=== PATIENT | male | born 1950 | race Caucasian/White ===

== ENCOUNTER 2021-12-01 15:04 | Emergency (ER) | payer MEDICARE, BC ==
[2021-12-01] MEDS ORDERED: Albuterol/Ipratropium 3.0-0.5 MG/3 ML Neb Soln NEB ONE (15:55)
[2021-12-01 16:47] LABS: CORONAVIRUS COVID-19 NAA NEGATIVE (NEGATIVE)
[2021-12-01 19:04] VITALS: BP 155/69; PULSE 77
== END 2021-12-01 19:04 | disposition home or self-care (01) ==
LOC: JP.ED 15:04
DX: J11.1 Influenza due to unidentified influenza virus with other respiratory manifestations (principal); I50.9 Heart failure, unspecified; I25.10 Atherosclerotic heart disease of native coronary artery without angina pectoris; I25.2 Old myocardial infarction; E11.9 Type 2 diabetes mellitus without complications; E66.9 Obesity, unspecified; Z68.37 Body mass index [BMI] 37.0-37.9, adult; Z88.0 Allergy status to penicillin; Z91.048 Other nonmedicinal substance allergy status; Z88.1 Allergy status to other antibiotic agents; Z88.6 Allergy status to analgesic agent; Z79.82 Long term (current) use of aspirin; Z79.4 Long term (current) use of insulin; Z79.02 Long term (current) use of antithrombotics/antiplatelets; Z79.899 Other long term (current) drug therapy; Z20.822 Contact with and (suspected) exposure to COVID-19
CPT/HCPCS: 0241U; 36415; 71046; 80053; 81001; 85025; 86140; 94640; 99284; 99285; J7620-GY

== ENCOUNTER 2021-12-05 19:32 | Emergency (ER) | payer MEDICARE, BC ==
[2021-12-05] MEDS ORDERED: Morphine 4 MG/ML Syringe IVPUSH PRN (19:36)
[2021-12-05] MEDS ORDERED: Nitroglycerin 0.4 MG Tab.SL SL PRN (19:36)
[2021-12-05] MEDS: Nitroglycerin/D5W 25 MG/250 ML BOTTLE IV SCH (20:21)
[2021-12-05] MEDS ORDERED: Furosemide 40 MG/4 ML VIAL IVPUSH ONE (21:07)
[2021-12-05] MEDS ORDERED: Albuterol/Ipratropium 3.0-0.5 MG/3 ML Neb Soln NEB PRN (23:21)
[2021-12-06] MEDS ORDERED: Isosorbide Mononitrate 30 MG Tab.ER ONE (01:46)
[2021-12-06] MEDS ORDERED: amLODIPine 5 MG Tab ONE (01:49)
[2021-12-06] MEDS ORDERED: hydrALAZINE 25 MG Tab ONE (01:50)
[2021-12-06] MEDS: hydrALAZINE 25 MG Tab PO SCH ×4 (01:58→21:45)
[2021-12-06 03:20] LABS: CORONAVIRUS COVID-19 NAA NEGATIVE (NEGATIVE)
[2021-12-06] MEDS: Mycophenolate Mofetil 250 MG Cap PO SCH ×2 (08:50→21:46)
[2021-12-06] MEDS: Magnesium Oxide 400 MG Tab PO SCH ×2 (08:52→21:46)
[2021-12-06] MEDS: Tacrolimus 0.5 MG Cap PO SCH ×2 (08:54→22:03)
[2021-12-06] MEDS: Pantoprazole 40 MG Tab.CR PO SCH ×2 (08:54→16:26)
[2021-12-06] MEDS ORDERED: Furosemide 40 MG Tab PO SCH (09:00)
[2021-12-06] MEDS ORDERED: Isosorbide Mononitrate 30 MG Tab.ER PO SCH (09:00)
[2021-12-06] MEDS ORDERED: Tamsulosin 0.4 MG Cap.ER PO SCH (09:00)
[2021-12-06] MEDS ORDERED: amLODIPine 5 MG Tab PO SCH (09:00)
[2021-12-06] MEDS ORDERED: Non-Formulary Medication 1 Each (Amlodipine [Norvasc] 10 MG Tablet) PO SCH (09:00)
[2021-12-06] MEDS ORDERED: Clopidogrel 75 MG Tab PO SCH (09:00)
[2021-12-06] MEDS ORDERED: Non-Formulary Medication 1 Each (Isosorbide Mononitrate [Isosorbide Mononitrate Er] 60 MG PO SCH (09:00)
[2021-12-06] MEDS: Budesonide 0.25 MG/2 ML Neb Susp INH SCH ×2 (09:01→23:03)
[2021-12-06] MEDS: Insulin Lispro 100 Unit/ML 3 ML KwikPen SUBCUT SCH ×3 (09:08→23:25)
[2021-12-06] MEDS ORDERED: LORazepam 2 MG/ML SDV IVPUSH ONE ×2 (11:09→17:32)
[2021-12-06] MEDS: Nitroglycerin/D5W 25 MG/250 ML BOTTLE IV SCH (15:15)
[2021-12-06] MEDS ORDERED: Oxymetazoline 0.05% Nasal Spray 30 ML Bottle NAS ONE (16:04)
[2021-12-06] MEDS ORDERED: Furosemide 40 MG/4 ML VIAL IVPUSH ONE (20:34)
[2021-12-06] MEDS ORDERED: Insulin Glargine,Human Rec. Analog 100 Units/ML 3 ML Pen SUBCUT SCH (21:00)
[2021-12-06] MEDS ORDERED: Aspirin 325 MG Tab.EC PO SCH (21:00)
[2021-12-06] MEDS ORDERED: atorvaSTATin 20 MG Tab PO SCH (21:00)
[2021-12-07 00:31] VITALS: PULSE 83
[2021-12-07 00:32] VITALS: BP 182/69
== END 2021-12-07 02:30 ==
LOC: JP.ED 19:32
DX: J10.1 Influenza due to other identified influenza virus with other respiratory manifestations (principal); I11.0 Hypertensive heart disease with heart failure; I50.9 Heart failure, unspecified; R09.02 Hypoxemia; E11.9 Type 2 diabetes mellitus without complications; I25.10 Atherosclerotic heart disease of native coronary artery without angina pectoris; E78.00 Pure hypercholesterolemia, unspecified; I25.2 Old myocardial infarction; E66.9 Obesity, unspecified; Z68.1 Body mass index [BMI] 19.9 or less, adult; Z95.1 Presence of aortocoronary bypass graft; Z79.82 Long term (current) use of aspirin; Z79.4 Long term (current) use of insulin; Z79.899 Other long term (current) drug therapy; Z88.0 Allergy status to penicillin; Z91.048 Other nonmedicinal substance allergy status; Z88.1 Allergy status to other antibiotic agents; Z88.8 Allergy status to other drugs, medicaments and biological substances
CPT/HCPCS: 36415; 36600; 71045; 80053; 81001; 82803; 82947; 83605; 83880; 84484; 85025; 94640; 96365; 96366; 96375; 96376; 99285; A9270; J1815; J1940; J2060; J2270; J3490; J7507; J7620-GY

== ENCOUNTER 2024-03-27 18:00 | Emergency (ER) | payer MEDICARE ==
[2024-03-27 19:03] LABS: BASOPHILS PERCENT AUTO 0.2 % (0.1-1.3); EOSINOPHILS ABSOLUTE AUTO 0.17 K/uL (0.00-0.40); EOSINOPHILS PERCENT AUTO 3.2 % (0.0-5.4); HEMATOCRIT 27.6 % (38.4-49.7); IMMATURE GRAN ABSOLUTE AUTO 0.05 K/uL (0.00-0.23); IMMATURE GRAN PERCENT AUTO 0.9 % (0.0-0.7); LYMPHOCYTES PERCENT AUTO 13.2 % (11.4-47.7); MEAN CORPUSCULAR HEMOGLOBIN 26.1 pg (31.6-35.5); MEAN CORPUSCULAR HGB CONC 32.6 g/dL (31.6-35.5); MONOCYTES ABSOLUTE AUTO 0.64 K/uL (0.20-0.90); MONOCYTES PERCENT AUTO 12.1 % (3.3-12.6); NEUTROPHILS ABSOLUTE AUTO 3.74 K/uL (1.0-7.6); NEUTROPHILS PERCENT AUTO 70.4 % (40.0-78.1); PLATELET COUNT,PLT 217 K/uL (130-375); RED BLOOD CELL COUNT 3.45 M/uL (4.14-5.76); WHITE BLOOD CELL COUNT,WBC 5.3 K/uL (3.2-11.0)
[2024-03-27 19:04] LABS: BASOPHILS ABSOLUTE AUTO 0.01 K/uL (0.00-0.10)
[2024-03-27] MEDS ORDERED: Sodium Chloride 0.9% 10 ML Syringe FLUSH PRN (19:11)
[2024-03-27 19:31] LABS: A/G RATIO 0.8 (1.2-2.2); ALANINE AMINOTRANSFERASE,ALT 16 U/L (12-78); ALBUMIN 2.5 g/dL (3.4-5.0); ALKALINE PHOSPHATASE 65 U/L (46-116); ANION GAP 8.5 mmol/L (5.0-14.0); ASPARTATE AMNIOTRANSFERASE,AST 19 U/L (15-37); BILIRUBIN TOTAL 0.3 mg/dL (0.2-1.0); BLOOD UREA NITROGEN,BUN 35 mg/dL (7-18); CALCIUM 9.3 mg/dL (8.5-10.1); CARBON DIOXIDE,CO2 29 mmol/L (21-32); CHLORIDE,CL 93 mmol/L (100-108); CREATININE 1.8 mg/dL (0.8-1.3); EST CRCL DRUG DOSING (CG) 41.31 mL/min; ESTIMATED GFR 39 mL/min (>60); GLUCOSE RANDOM 109 mg/dL (74-106); POTASSIUM,K 4.5 mmol/L (3.6-5.2); PRO B-TYPE NATRIUR PEPT,BNPPRO 1626 pg/mL (5-125); PROTEIN TOTAL,TP 5.6 g/dL (6.4-8.2); SODIUM,NA 126 mmol/L (140-148)
[2024-03-27 19:45] LABS: APPEARANCE,URINE CLEAR (CLEAR); BILIRUBIN,URINE NEGATIVE (NEGATIVE); COLOR,URINE YELLOW (YELLOW); GLUCOSE,URINE NEGATIVE (NEGATIVE); KETONES,URINE NEGATIVE (NEGATIVE); LEUKOCYTE ESTERASE,URINE NEGATIVE (NEGATIVE); NITRITE,URINE NEGATIVE (NEGATIVE); OCCULT BLOOD,URINE NEGATIVE (NEGATIVE); PH,URINE 5.5 (5.0-8.0); PROTEIN,URINE TRACE mg/dL (NEGATIVE); UROBILINOGEN,URINE 0.2 EU/dL (0.2-1.0)
[2024-03-27 19:51] LABS: AMORPHOUS SEDIMENT,URINE NOT SEEN; BACTERIA,URINE FEW; EPITHELIAL CELLS,URINE RARE; MUCUS,URINE NOT SEEN; RBC,URINE 0-5 (0-5); WBC,URINE 0-5 (0-5)
[2024-03-27] MEDS: Furosemide 40 MG/4 ML VIAL IVPUSH ONE (20:40)
[2024-03-27 23:45] VITALS: BP 186/51; PULSE 71
== END 2024-03-28 00:20 ==
LOC: JP.ED 18:00
DX: R60.1 Generalized edema (principal); I11.0 Hypertensive heart disease with heart failure; I50.9 Heart failure, unspecified; N28.9 Disorder of kidney and ureter, unspecified; I25.2 Old myocardial infarction; I25.10 Atherosclerotic heart disease of native coronary artery without angina pectoris; J44.9 Chronic obstructive pulmonary disease, unspecified; E66.9 Obesity, unspecified; E11.9 Type 2 diabetes mellitus without complications; Z87.891 Personal history of nicotine dependence; Z88.0 Allergy status to penicillin; Z88.8 Allergy status to other drugs, medicaments and biological substances; Z91.048 Other nonmedicinal substance allergy status; Z79.82 Long term (current) use of aspirin; Z79.4 Long term (current) use of insulin; Z79.899 Other long term (current) drug therapy; Z68.36 Body mass index [BMI] 36.0-36.9, adult
CPT/HCPCS: 36415; 71045; 71045-26; 80053; 81001; 83880; 85025; 96374; 99285; 99285-25; J1940